=== PATIENT | male | born 1955 | race Caucasian/White ===

== ENCOUNTER → 2018-01-07 | Day surgery (SDC) | payer BC ==
[~2018-01-07] MED LIST: Lactated Ringers 1,000 ML IV SCH; Propofol 200 MG/20 ML SDV IV ONE
--- NOTE | 2018-01-07 10:29 | OR ---
DATE OF OPERATION: 01/07/2018 PREOPERATIVE DIAGNOSIS: FOLLOW UP POLYPS. POSTOPERATIVE DIAGNOSIS: FOLLOW UP POLYPS SURGEON: eKndall Reyna MD PROCEDURE: FULL-LENGTH COLONOSCOPY WITH BIOPSY X1. ANESTHESIA: [employer]. COMPLICATIONS: None. SPECIMEN: Sigmoid biopsy x1. FINDINGS: 1. Full-length colonoscopy. 2. Moderate sigmoid diverticulosis. 3. Focal area of colitis, likely diverticular in nature. RECOMMENDATIONS: Follow up colonoscopy 7-8 years. INDICATIONS: Mr. Liang had a prior colonoscopy 5 years ago where multiple polyps were removed. He was scheduled for 5-year followup. DESCRIPTION OF PROCEDURE: The patient was prepped and draped, placed in the left lateral decubitus position. A lubricated Olympus colonoscope was inserted and directly visualized the ileocecal valve and appendiceal orifice. The bowel prep was marginal. The patient had a lot of liquid dark stool throughout the entire colon. Many areas were able to be suctioned, some not. Upon withdrawal, the cecum, ascending and transverse colon appeared benign. The patient has fairly prominent diverticular disease throughout the left colon starting in the distal descending colon extending the rectosigmoid junction, at least moderate in severity at certain areas. In the [id number] sigmoid colon, the patient had one focal area of colitis, likely diverticular in nature. Biopsy was taken for confirmation. No other polyps, masses, ulcerations or lesions were seen. No signs of any vascular abnormalities. The rectal vault appeared benign. Retroflexion scope in the rectum showed no perianal lesions. Air was suctioned. Scope removed without complication. NIR/ERICA /[id number]
== END ==
LOC: CC.SDS 07:30
PROVIDERS: ATTEND Family Medicine
DX: Z12.11 Encounter for screening for malignant neoplasm of colon (principal); K57.30 Diverticulosis of large intestine without perforation or abscess without bleeding; K52.9 Noninfective gastroenteritis and colitis, unspecified; I10 Essential (primary) hypertension; E11.40 Type 2 diabetes mellitus with diabetic neuropathy, unspecified; E78.5 Hyperlipidemia, unspecified; E66.9 Obesity, unspecified; Z68.39 Body mass index [BMI] 39.0-39.9, adult; Z79.899 Other long term (current) drug therapy; Z86.010 Personal history of colon polyps; Z80.0 Family history of malignant neoplasm of digestive organs
CPT/HCPCS: 45380; J2704; J7120

== ENCOUNTER → 2023-02-05 | Day surgery (SDC) | payer MEDICARE, OTHER ==
[~2023-02-05] MED LIST changes: +Ketamine 200 MG/20 ML MDV ONE; -Propofol 200 MG/20 ML SDV IV ONE; +Propofol 200 MG/20 ML SDV ONE; +fentaNYL 50 MCG/ML SDV ONE
== END ==
LOC: CC.SDS 07:18
PROVIDERS: ATTEND Family Medicine
DX: K62.1 Rectal polyp (principal); K57.30 Diverticulosis of large intestine without perforation or abscess without bleeding; R73.03 Prediabetes; J32.9 Chronic sinusitis, unspecified; Z88.1 Allergy status to other antibiotic agents; Z86.79 Personal history of other diseases of the circulatory system
CPT/HCPCS: 45380; J2704; J3010; J7120; 00812; J3490